=== PATIENT | male | born 1975 | race Hispanic/Latino ===

== ENCOUNTER 2018-06-10 12:49 | Emergency (ER) | payer OTHER ==
[~2018-06-10] VITALS: Ht 175.3 cm; Wt 74.8 kg
[2018-06-10 12:50] VITALS: BP 141/87; TEMP 97.9
[2018-06-10 13:28] LABS: PLATELET COUNT 203 K/uL (142-355)
[2018-06-10 13:37] LABS: POTASSIUM 3.8 mmol/L (3.6-5.2); SODIUM 141 mmol/L (136-145)
== END 2018-06-10 15:25 | disposition home or self-care (01) ==
LOC: ED 12:49
PROVIDERS: Allergy & Immunology
PROC: 0HQ1XZZ Repair Face Skin, External Approach (ICD-10-PCS; principal; 2018-06-10)
PROC: 0HQLXZZ Repair Left Lower Leg Skin, External Approach (ICD-10-PCS; 2018-06-10)
DX: S01.81XA Laceration without foreign body of other part of head, initial encounter (principal); S81.012A Laceration without foreign body, left knee, initial encounter; S01.312A Laceration without foreign body of left ear, initial encounter; S00.83XA Contusion of other part of head, initial encounter; W20.8XXA Other cause of strike by thrown, projected or falling object, initial encounter
CPT/HCPCS: 80053; 84484; 85027; 90715; 96372; 96374; 99283; J2270; J7040

== ENCOUNTER 2020-09-17 13:54 | Day surgery (SDC) | payer OTHER ==
[~2020-09-17] VITALS: Ht 30.5 cm; Wt 0.5 kg
== END 2020-09-18 15:42 | disposition home or self-care (01) ==
LOC: OR 13:54
PROVIDERS: ATTEND Family Medicine
PROC: 0D9P0ZZ Drainage of Rectum, Open Approach (ICD-10-PCS; principal; 2020-09-17)
PROC: 0HD9XZZ Extraction of Perineum Skin, External Approach (ICD-10-PCS; 2020-09-17)
DX: K61.1 Rectal abscess (principal); L98.9 Disorder of the skin and subcutaneous tissue, unspecified
CPT/HCPCS: 87070; 87077; 87186; 87205; J2704